=== PATIENT | male | born 1965 | race Caucasian/White ===

== ENCOUNTER 2018-08-18 09:02 | Day surgery (SDC) | payer OTHER ==
[2018-08-16 10:44] VITALS: BMI 28.3
--- NOTE | 2018-08-18 08:16 | P.GSHP ---
History of Present Illness H&P Date: 08/18/18 CHIEF COMPLAINT: GERD and colon screen HISTORY OF PRESENT ILLNESS: The patient is a 53-year-old male who presents with gastroesophageal reflux disease and need for colon screen. Upper and lower endoscopy were offered for further evaluation and management. PAST MEDICAL HISTORY: Please see list. PAST SURGICAL HISTORY: Please see list. MEDICATIONS: Please see list. ALLERGIES: Please see list. SOCIAL HISTORY: No illicit drug use FAMILY HISTORY: No reports of Crohn disease or ulcerative colitis. REVIEW OF ORGAN SYSTEMS: CONSTITUTIONAL: No reports of fevers or chills. GI: Denies any blood in stools or constipation. PHYSICAL EXAM: VITAL SIGNS: Stable GENERAL: Well-developed pleasant in no acute distress. HEENT: No scleral icterus. Extraocular movements grossly intact. Moist buccal mucosa. NECK: Supple without lymphadenopathy. CHEST: Unlabored respirations. Equal bilateral excursions. CARDIOVASCULAR: Regular rate and rhythm. Distal 2+ pulses. ABDOMEN: Soft, nondistended. MUSCULOSKELETAL: No clubbing, cyanosis, or edema. ASSESSMENT: 1. Gastroesophageal reflux disease 2. Colon screen. PLAN: 1. Recommend proceeding with an upper and lower endoscopy Past Medical History Past Medical History: GERD/Reflux, Hyperlipidemia Additional Past Medical History / Comment(s): recent elevated cholesterol History of Any Multi-Drug Resistant Organisms: None Reported Past Surgical History: Orthopedic Surgery Additional Past Surgical History / Comment(s): middle finger left hand surgery- foreign body, Past Anesthesia/Blood Transfusion Reactions: No Reported Reaction Smoking Status: Former smoker - Past Family History Mother Family Medical History: Cancer Medications and Allergies Home Medications Medication Instructions Recorded Confirmed Type Hydrocodone/Acetaminophen [[place] 1 tab PO TID PRN 08/16/18 08/16/18 History 5-325] Ibuprofen [Motrin Ib] 200 mg PO DIRECTED PRN 08/16/18 08/16/18 History Allergies Allergy/AdvReac Type Severity Reaction Status Date / Time No Known Allergies Allergy Verified 08/16/18 10:35
[~2018-08-18 09:02] MED LIST: LACTATED RINGERS 1,000 ML IV SCH; LIDOCAINE 1% 20 ML VIAL (10MG/ML) FOR IV START INTRADERMA PRN
[2018-08-18 09:22] VITALS: RESP 16; TEMP 97.5
[2018-08-18] MEDS ORDERED: LIDOCAINE 1% INJ 10MG/ML (20 ML MDV) ONE (09:39)
[2018-08-18] MEDS ORDERED: PROPOFOL 10 MG/ML 20 ML VIAL IV ONE (09:39)
--- NOTE | 2018-08-18 10:00 | P.PCN ---
Date of Procedure: 08/18/18 Description of Procedure: PREOPERATIVE DIAGNOSIS: Colonoscopy screening, first POSTOPERATIVE DIAGNOSIS: Colonoscopy screening. OPERATION: Colonoscopy to the ileocecal valve and appendiceal orifice. SURGEON: Micaela Bertrand MD. ANESTHESIA: MAC. INDICATIONS: The patient is a 53-year-old male who presents for his firts colonoscopy screening. Benefits and risks were described and informed consent was obtained. DESCRIPTION OF PROCEDURE: The patient had undergone Gatorade, MiraLAX and Dulcolax prep. She had been brought into the operating room and laid in the left lateral decubitus position. After adequate intravenous sedation, the rectum was examined with 2% lidocaine jelly. No external hemorrhoids were encountered. The prostate was smooth and without abnormality. The rectal tone was within normal limits. No lesions were palpated in the rectal vault. An Olympus colonoscope was advanced until the ileocecal valve and appendiceal orifice were clearly viewed. The prep was excellent with clear visualization of the mucosal folds. The scope was removed with visualization of each mucosal fold. No scattered diverticulosis was encountered. No colonic polyps were found. No evidence of focal colitis was found. Retroflexion of the scope demonstrated no internal hemorrhoids without active bleeding or inflammation. The colon was desufflated. The patient had tolerated the procedure well. Withdrawal time was over 6 minutes. FINDINGS: [place] preparation quality scale 1 (1-5) No internal hemorrhoids No external prolapsed hemorrhoids. No arteriovenous malformations. No adenomatous polyps. No focal colitis. No scattered diverticulosis was encountered. RECOMMENDATIONS: Lower endoscopy in 2028 Plan - Discharge Summary New Discharge Prescriptions: No Action Ibuprofen [Motrin Ib] 200 mg PO DIRECTED PRN PRN Reason: Pain Hydrocodone/Acetaminophen [[place] 5-325] 1 tab PO TID PRN PRN Reason: Pain Discharge Medication List Hydrocodone/Acetaminophen [[place] 5-325] 1 tab PO TID PRN 08/16/18 [History] Ibuprofen [Motrin Ib] 200 mg PO DIRECTED PRN 08/16/18 [History] Follow up Appointment(s)/Referral(s): Micaela Bertrand MD [STAFF PHYSICIAN] - As Needed Patient Instructions/Handouts: *Surgery [facility] - (Anesthesia) Endoscopy Discharge Instructions, Colonoscopy (DC) Activity/Diet/Wound Care/Special Instructions: Repeat colonoscopy in 10 2028 Discharge Disposition: HOME SELF-CARE
[2018-08-18 10:13] VITALS: BP 121/84; PULSE 72
== END 2018-08-18 10:27 | disposition home or self-care (01) ==
LOC: ORWHC2ENDO 09:02
PROVIDERS: ATTEND Surgery Plastic and Reconstructive Surgery
DX: Z12.11 Encounter for screening for malignant neoplasm of colon (principal); E78.5 Hyperlipidemia, unspecified; Z87.891 Personal history of nicotine dependence; K21.9 Gastro-esophageal reflux disease without esophagitis
CPT/HCPCS: J2001; J2704; G0121

== ENCOUNTER 2021-02-27 01:04 | Emergency (ER) | payer BC, OTHER ==
[2021-02-27 01:09] VITALS: BP 110/66; PULSE 73; RESP 18
[2021-02-27] MEDS ORDERED: KETOROLAC 15 MG/ML 1 ML VIAL IM STA (01:27)
[2021-02-27] MEDS ORDERED: Acetaminophen-Codeine 300-30mg TAB PO STA (01:27)
--- NOTE | 2021-02-27 01:27 | ED ---
Back Pain HPI - General Chief Complaint: Back Pain/Injury Stated Complaint: Back Pain Time Seen by Provider: 02/27/21 01:22 Source: patient, RN notes reviewed, old records reviewed Limitations: no limitations - History of Present Illness Initial Comments: This is a 55-year-old male to the emergency room today. Patient Dese was severe back pain no trauma. Back pain now legs. Patient is able to amply without difficulty. No loss of bowel or bladder. No other complaints. MD Complaint: back pain -: days(s) Similar Symptoms Previously: Yes Place: home Radiation: buttocks Severity: severe Severity scale (1-10): 9 Quality: sharp Consistency: intermittent Improves With: none Worsens With: none Context: while lifting, turning/twisting Associated Symptoms: weakness Treatments Prior to Arrival: acetaminophen, other medications - Related Data Home Medications Medication Instructions Recorded Confirmed Hydrocodone/Acetaminophen [[place] 1 tab PO TID PRN 08/16/18 08/18/18 5-325] Ibuprofen [Motrin Ib] 200 mg PO DIRECTED PRN 08/16/18 08/18/18 Allergies Allergy/AdvReac Type Severity Reaction Status Date / Time No Known Allergies Allergy Verified 02/27/21 01:09 Review of Systems ROS Statement: Those systems with pertinent positive or pertinent negative responses have been documented in the HPI. ROS Other: All systems not noted in ROS Statement are negative. Past Medical History Past Medical History: GERD/Reflux, Hyperlipidemia Additional Past Medical History / Comment(s): recent elevated cholesterol History of Any Multi-Drug Resistant Organisms: None Reported Past Surgical History: Orthopedic Surgery Additional Past Surgical History / Comment(s): middle finger left hand surgery- foreign body, Past Anesthesia/Blood Transfusion Reactions: No Reported Reaction Past Psychological History: No Psychological Hx Reported Smoking Status: Never smoker Past Alcohol Use History: Occasional Past Drug Use History: None Reported - Past Family History Mother Family Medical History: Cancer General Exam Limitations: no limitations General appearance: alert, in no apparent distress Head exam: Present: atraumatic, normocephalic, normal inspection Eye exam: Present: normal appearance, PERRL, EOMI. Absent: scleral icterus, conjunctival injection, periorbital swelling ENT exam: Present: normal exam, mucous membranes moist Neck exam: Present: normal inspection. Absent: tenderness, meningismus, lymphadenopathy Respiratory exam: Present: normal lung sounds bilaterally. Absent: respiratory distress, wheezes, rales, rhonchi, stridor Cardiovascular Exam: Present: regular rate, normal rhythm, normal heart sounds. Absent: systolic murmur, diastolic murmur, rubs, gallop, clicks GI/Abdominal exam: Present: soft, normal bowel sounds. Absent: distended, tenderness, guarding, rebound, rigid Extremities exam: Present: normal inspection, full ROM, normal capillary refill. Absent: tenderness, pedal edema, joint swelling, calf tenderness Back exam: Present: normal inspection Neurological exam: Present: alert, oriented X3, CN II-XII intact Psychiatric exam: Present: normal affect, normal mood Skin exam: Present: warm, dry, intact, normal color. Absent: rash Course Vital Signs 02/27/21 01:06 Pulse Rate 73 Respiratory 18 Rate Blood Pressure 110/66 O2 Sat by Pulse 95 Oximetry - Reevaluation(s) Reevaluation #1: Medical record is reviewed Patient symptoms are improved here in the ER Patient informed results and questions answered Patient is in no acute distress Medical Decision Making - Medical Decision Making 55 male to the emergency department for evaluation of severe back pain. Patient's back pain is well-controlled currently can be discharged home - Radiology Data Radiology results: report reviewed (CT abdomen and pelvis is negative for acute disease), image reviewed Disposition Clinical Impression: Sciatica, Lumbar radiculopathy Disposition: HOME SELF-CARE Condition: Good Instructions (If sedation given, give patient instructions): Acute Low Back Pain (ED) Is patient prescribed a controlled substance at d/c from ED?: No Referrals: Kei Mello DO [Primary Care Provider] - 1-2 days
--- NOTE | 2021-02-27 02:13 | CT ---
EXAMINATION TYPE: CT abdomen pelvis wo con DATE OF EXAM: 02/27/2021 COMPARISON: None HISTORY: back pain. denies injury CT DLP: 554.3 mGycm Automated exposure control for dose reduction was used. Images obtained from the diaphragm to the floor the pelvis with no contrast. Lung bases are clear. There is no pleural effusion. Heart size is normal. There is no pericardial eff usion. There is possible 3 cm hypodense area in the superior lateral right lobe of the liver. Exam li mited by lack of contrast. The bile ducts are nondilated. Gallbladder appears normal. Spleen pancreas stomach appear intact. There is no adrenal mass. Kidneys have normal size and contour. There is no hydronephrosis. Ureters a re not dilated. There is no retroperitoneal adenopathy. Bladder distends smoothly. There is no inguin al hernia. There is minimal prostate calcification. There are some calcifications anterior to the rig ht ischium that could relate to old injury. There is no mesenteric edema. There is no ascites or free air. There is no bowel obstruction. Appendi x is medial and appears normal. The lumbar vertebra show fairly normal alignment. There is a mild subluxation at L4-5. There is no de finite spondylolysis. There is no compression fracture. The bony pelvis is intact. Hip joints are int act. IMPRESSION: There is subtle hypodense area superior lateral right lobe of the liver of uncertain significance. Ul trasound might be helpful to further characterize this. Normal appendix. Degenerative first-degree L4-5 spondylolisthesis. No focal bone destruction. Right hip joint periarticular calcifications could relate to old injury.
[2021-02-27] MEDS ORDERED: IBUPROFEN 600 MG STARTER PACK 4 TAB BTL PO STA (02:51)
[2021-02-27] MEDS ORDERED: ACET/COD 300 MG/30 MG STARTER PACK 6 TAB BTL PO STA (02:51)
[2021-02-27] MEDS ORDERED: HYDROcodone/APAP 5-325MG 1 EACH TAB PO STA (02:52)
[2021-02-27] MEDS ORDERED: dexAMETHasone 2 MG TAB PO STA (02:53)
== END 2021-02-27 03:19 | disposition home or self-care (01) ==
LOC: EC 01:04
DX: M54.16 Radiculopathy, lumbar region (principal); M54.30 Sciatica, unspecified side
CPT/HCPCS: 74176; 96372; 99285; J8540; J1885

== ENCOUNTER → 2021-05-30 | Outpatient (CLI) | payer BC ==
--- NOTE | 2021-05-30 08:07 | US ---
EXAMINATION TYPE: US liver DATE OF EXAM: 05/30/2021 COMPARISON: CT 2020 CLINICAL HISTORY: K76.9 Liver disease, unspecified. Liver mass seen on recent CT EXAM MEASUREMENTS: Liver Length: 16.6 cm Gallbladder Wall: 0.2 cm CBD: 0.5 cm Right Kidney: 10.9 x 4.8 x 5.3 cm Pancreas: tail obscured by overlying midline bowel gas Liver: 3.1 x 2.2 x 1.9cm ill defined hypoechoic area with hyperechoic rim seen lateral right lobe Gallbladder: wnl Evidence for sonographic Meza's sign: no CBD: visualized portions wnl Right Kidney: wnl IMPRESSION: Ill-defined lesion right hepatic lobe. Further characterization with contrast-enhanced CT is advised.
== END | disposition home or self-care (01) ==
LOC: RADUSWWP 07:22
PROVIDERS: ATTEND Family Medicine
DX: K76.9 Liver disease, unspecified (principal)
CPT/HCPCS: 76705

== ENCOUNTER 2022-05-08 09:25 | Emergency (ER) | payer BC ==
[2022-05-08 09:33] VITALS: RESP 18; TEMP 97.8
[2022-05-08] MEDS ORDERED: DEXAMETHASONE SOD PHOSPHATE 10 MG/ML 1 ML VIAL IV STA (10:03)
[2022-05-08] MEDS ORDERED: diphenhydrAMINE 50 MG/ML 1 ML VIAL IVP STA (10:03)
[2022-05-08] MEDS ORDERED: MORPHINE SULFATE 4 MG/ML SYRINGE IV STA (10:03)
[2022-05-08] MEDS ORDERED: PROCHLORPERAZINE INJ 10 MG/2 ML VIAL IVP STA (10:04)
[2022-05-08] MEDS ORDERED: SODIUM CHLORIDE 0.9% 1,000 ML IV STA (10:04)
--- NOTE | 2022-05-08 10:16 | ED ---
General Adult HPI - General Chief complaint: Headache Stated complaint: headache - sent by pcp Time Seen by Provider: 05/08/22 09:48 Source: patient, RN notes reviewed, old records reviewed Mode of arrival: ambulatory Limitations: no limitations - History of Present Illness Initial comments: Patient is a 57-year-old male with no significant past medical history who was sent in by PCP to obtain CT brain due to severe headache. States he is having the worst headache of his life. Describes it as a generalized squeezing type headache located around his head. Does state it radiates somewhat into the posterior neck muscles. States it started around 5 PM last night and has progressively gotten worse. Has no significant past medical history. Takes no medications at home. Denies any chest pain, shortness of breath, abdominal pain, nausea, vomiting, dizziness, blurred speech, weakness, numbness. Has no other acute complaints at this time. He presents emergency department for further evaluation for his headache. Is not on blood thinners. Denies trauma. No history of migraines. States he does have a history of some milder headaches which sometimes her from sinus infections, and he attempted to take Sudafed as well as Tylenol without much improvement in his pain. - Related Data Home Medications Medication Instructions Recorded Confirmed Hydrocodone/Acetaminophen [[place] 1 tab PO TID PRN 08/16/18 08/18/18 5-325] Ibuprofen [Motrin Ib] 200 mg PO DIRECTED PRN 08/16/18 08/18/18 Allergies Allergy/AdvReac Type Severity Reaction Status Date / Time No Known Allergies Allergy Verified 05/08/22 09:33 Review of Systems ROS Statement: Those systems with pertinent positive or pertinent negative responses have been documented in the HPI. Review of Systems: CONST: Denies fever EYES: Denies blurry vision ENT: Denies nasal congestion C/V: Denies Chest pain RESP: Denies shortness of breath GI: Denies abdominal pain : Denies dysuria SKIN: Denies rash. MSK: Denies joint pain. NEURO: Endorses headache ROS Other: All systems not noted in ROS Statement are negative. Past Medical History Past Medical History: GERD/Reflux, Hyperlipidemia Additional Past Medical History / Comment(s): recent elevated cholesterol History of Any Multi-Drug Resistant Organisms: None Reported Past Surgical History: Orthopedic Surgery Additional Past Surgical History / Comment(s): middle finger left hand surgery- foreign body, Past Anesthesia/Blood Transfusion Reactions: No Reported Reaction Past Psychological History: No Psychological Hx Reported Smoking Status: Never smoker Past Alcohol Use History: Occasional Past Drug Use History: None Reported - Past Family History Mother Family Medical History: Cancer General Exam - General Exam Comments Initial Comments: General: Appears in no acute distress. HEAD: Normal with no signs of head trauma. EYES: PERRLA, EOMI, conjunctiva normal, no discharge. Pupils are 3 mm and equal bilaterally. ENT: Hearing grossly intact, normal oropharynx. RESPIRATORY: Clear breath sounds bilaterally. No wheezes, rales, or rhonchi. C/V: Regular rate and rhythm. S1 and S2 auscultated, no edema, peripheral pulses 2+ and intact throughout ABD: Abd is soft, nontender, nondistended EXT: Normal range of motion, no obvious deformity SKIN: No rashes or lesions observed on exposed skin. NEURO: Alert and oriented x 4. Cranial nerves II-XII intact. No focal sensory or strength deficits. GCS of 15. NIH of 0. Able to ambulate without difficult y. Cerebellar function within normal limits as evident by normal finger to nose testing. Limitations: no limitations Course Vital Signs 05/08/22 05/08/22 09:29 12:14 Temperature 97.8 F 97.8 F Pulse Rate 74 70 Respiratory 18 18 Rate Blood Pressure 185/113 127/93 O2 Sat by Pulse 99 98 Oximetry Medical Decision Making - Medical Decision Making Based on patient's presentation and physical exam, I'm concerned for possible intracranial pathology for his current symptoms. He is having the worse headache of his life, but has no obvious other symptoms. It is resting comfortable and joking with me in the evaluation room. Was sent here for CT imaging the brain. He will be given a migraine cocktail at this time, basic labs will be obtained, and CT brain with and without contrast also be obtained. He was in agreement this plan. Vital signs within accepted limits. He is slightly hypertensive I do suspect this is secondary to his headache. We will treat her headache and reevaluated vital signs. He was in agreement with this plan Patient's laboratory studies are within normal limits. Patient's CT brain is interpreted by myself reveals no acute intracranial process. No acute hemorrhage or bleed. There are chronic changes related to age per radiology. Patient's CT angiogram of the head as interpreted by myself reveals no sig nificant abnormality, no obvious blockage. Radiology concurs with these findings. On reevaluation, patient's headache has resolved. I updated him on the results of his lab studies and imaging. He will be discharged home at this time with strict return precautions. Instructed to follow-up with his PCP in the next 24- 48 hours. He was in agreement this plan. I instructed the patient to follow up with their PCP in the next 1-3 days. I explained that the patient should return to the emergency department if they experience any worsening symptoms. Strict return precautions were discussed with the patient. The patient expressed understanding of these instructions. I answered all questions that the patient had. The patient was discharged home in good condition with their prescriptions and follow up information. - Lab Data Result diagrams: 05/08/22 10:19 05/08/22 10:19 Lab Results 05/08/22 05/08/22 Range/Units 10:19 10:19 WBC 4.5 (3.8-10.6) k/uL RBC 5.17 (4.30-5.90) m/uL Hgb 15.4 (13.0-17.5) gm/dL Hct 44.5 (39.0-53.0) % MCV 86.0 (80.0-100.0) fL MCH 29.7 (25.0-35.0) pg MCHC 34.6 (31.0-37.0) g/dL RDW 12.5 (11.5-15.5) % Plt Count 252 (150-450) k/uL MPV 7.4 Neutrophils % 59 % Lymphocytes % 26 % Monocytes % 8 % Eosinophils % 4 % Basophils % 2 % Neutrophils # 2.6 (1.3-7.7) k/uL Lymphocytes # 1.2 (1.0-4.8) k/uL Monocytes # 0.3 (0-1.0) k/uL Eosinophils # 0.2 (0-0.7) k/uL Basophils # 0.1 (0-0.2) k/uL Sodium 139 (137-145) mmol/L Potassium 4.2 (3.5-5.1) mmol/L Chloride 105 (98-107) mmol/L Carbon Dioxide 23 (22-30) mmol/L Anion Gap 11 mmol/L BUN 14 (9-20) mg/dL Creatinine 0.64 L (0.66-1.25) mg/dL Est GFR (CKD-EPI)AfAm >90 (>60 ml/min/1.73 sqM) Est GFR (CKD-EPI)NonAf >90 (>60 ml/min/1.73 sqM) Glucose 96 (74-99) mg/dL Calcium 9.1 (8.4-10.2) mg/dL - EKG Data -: EKG Interpreted by Me EKG Comments: 12-lead Electrocardiogram Interpretation Note EKG was reviewed and interpreted by myself. 12-lead ECG performed at 1013 is interpreted by me as revealing normal sinus rhythm at a rate of 74 beats per minute. [place] is normal. IN interval is 148 ms, QRS duration is 114 ms, QTc is 422 ms.. There were no ST or T wave abnormalities to suggest myocardial ischemia or injury. R wave progression across the precordium was satisfactory. By my interpretation this EKG is non-diagnostic for acute ischemia. Disposition Clinical Impression: Headache Disposition: HOME SELF-CARE Condition: Good Instructions (If sedation given, give patient instructions): Acute Headache (ED) Is patient prescribed a controlled substance at d/c from ED?: No Referrals: Kei Mello DO [Primary Care Provider] - 1-2 days Time of Disposition: 12:00
[2022-05-08 10:27] LABS: Basophils # (A) 0.1 k/uL (0-0.2); Basophils % (A) 2 %; Eosinophils # (A) 0.2 k/uL (0-0.7); Eosinophils % (A) 4 %; HCT 44.5 % (39.0-53.0); HGB 15.4 gm/dL (13.0-17.5); Lymphocytes # (A) 1.2 k/uL (1.0-4.8); Lymphocytes % (A) 26 %; MCH 29.7 pg (25.0-35.0); MCHC 34.6 g/dL (31.0-37.0); Mean Platelet Volume 7.4; Monocytes # (A) 0.3 k/uL (0-1.0); Monocytes % (A) 8 %; Neutrophils # (A) 2.6 k/uL (1.3-7.7); Neutrophils % (A) 59 %; Platelet Count 252 k/uL (150-450); RBC 5.17 m/uL (4.30-5.90); RDW 12.5 % (11.5-15.5); WBC 4.5 k/uL (3.8-10.6)
[2022-05-08 10:53] LABS: African American GFR (CKD) >90 (>60 ml/min/1.73 sqM); Anion Gap 11 mmol/L; Blood Urea Nitrogen 14 mg/dL (9-20); Calcium 9.1 mg/dL (8.4-10.2); Carbon Dioxide 23 mmol/L (22-30); Chloride 105 mmol/L (98-107); Glucose 96 mg/dL (74-99); Non-African American GFR(CKD) >90 (>60 ml/min/1.73 sqM); Sodium 139 mmol/L (137-145)
[2022-05-08 11:03] LABS: Potassium 4.2 mmol/L (3.5-5.1)
--- NOTE | 2022-05-08 11:23 | CT ---
EXAMINATION TYPE: CT brain wo con DATE OF EXAM: 05/08/2022 COMPARISON: None HISTORY: Headache with HTN. No history of HTN CT DLP: 1169.[address] of the brain was performed. The ventricles, basal cisterns and sulci overlying the cerebral convexities demonstrate mild enlargem ent. There is no evidence for intracranial hemorrhage or sulcal effacement. There is decreased attenuation about the periventricular white matter and deep white matter of both c erebral hemispheres, compatible with chronic small vessel ischemia. Differential diagnosis does inclu de demyelination. No mass effects are seen.No midline shift. Osseous calvarium is intact. If symptoms persist consider MRI. IMPRESSION: 1. Age related atrophic and chronic small vessel ischemic change without acute intracranial process s een at this time.
--- NOTE | 2022-05-08 11:53 | CT ---
EXAMINATION TYPE: CT angio head neck DATE OF EXAM: 05/08/2022 COMPARISON: None HISTORY: Headache with HTN. No history of HTN CT DLP: 668.1 mGycm CONTRAST: Performed without and with IV Contrast, patient injected with 65 ml mL of Isovue 370. Combination Contrast CTA cervical carotids and [place] CTA cervical carotids with 3-D recons truction Contrast CTA of the cervical carotids was performed 3-D reconstruction imaging obtained at a separate workstation. Right carotid system: Mild plaque is seen of the right common carotid artery. There is mild plaque a lso noted at the carotid bulb and proximal ICA. No significant diameter reduction. ECA is patent. Right vertebral artery appears unremarkable. Left carotid system: Mild plaque is seen of the left common carotid artery. There is mild plaque als o noted at the carotid bulb and proximal ICA. No significant diameter reduction. ECA is patent. Lef t vertebral artery appears unremarkable. IMPRESSION: 1. No significant diameter reduction to account for the patient's symptoms. CTA [place] with 3-D reconstruction Contrast CTA of the [place] was performed 3-D reconstruction imaging obtained at a separate workstation. Vertebrobasilar system as well as intracranial portions of the internal carotid arteries and their [place] tributaries are patent. I do not see evidence for sizable aneurysm or vascular malformation. Pl ease note MRI provides greater sensitivity and specificity. Visualized brain appears grossly unremar kable. IMPRESSION: 1. No significant abnormality. NASCET criteria was used in interpretation of this exam?
[2022-05-08 12:15] VITALS: BP 127/93; PULSE 70
== END 2022-05-08 12:19 | disposition home or self-care (01) ==
LOC: EC 09:25
DX: R51.9 Headache, unspecified (principal); I10 Essential (primary) hypertension; I67.82 Cerebral ischemia
CPT/HCPCS: 36415; 93005; 80048; 85025; 70496; 70450; 70498; 99284; 96374; 96375 ×3; 96361 ×2; J2270; J1200; J0780; J1100; Q9967